=== PATIENT | female | born 1985 | race Caucasian/White ===

== ENCOUNTER → 2018-08-10 | Outpatient (CLI) | payer BC ==
[~2018-08-10] MED LIST: ACET-3017 PO; AMLO-127 PO; IBUP800T37 PO; LOSA100T75 PO; MISO200T59 PO; NORE1PAT3
--- NOTE | 2018-08-10 15:28 | EKG ---
FACILITY: [facility] PATIENT NAME: SASKIA MOTT : [id number] MR: [id number] V: [id number] EXAM DATE: ORDERING PHYSICIAN: PHYLLIS BLANCO TECHNOLOGIST: MITCHELL Test Reason : CHECK UP Blood Pressure : / mmHG Vent. Rate : 071 BPM Atrial Rate : 071 BPM P-R Int : 166 ms QRS Dur : 090 ms QT Int : 384 ms P-R-T Axes : 061 025 046 degrees QTc Int : 417 ms Normal sinus rhythm with sinus arrhythmia Normal ECG No previous ECGs available Confirmed by PHYLLIS BLANCO ([id number]) on 08/18/2018 1:29:46 PM Referred By: BELLA Confirmed By:PHYLLIS BLANCO
== END ==
LOC: RESP 14:55
PROVIDERS: ATTEND Emergency Medicine
DX: I10 Essential (primary) hypertension (principal)
CPT/HCPCS: 93005

== ENCOUNTER → 2018-08-12 | Outpatient (CLI) | payer BC ==
[~2018-08-12] MED LIST changes: -ACET-3017 PO; -AMLO-127 PO; -IBUP800T37 PO; -MISO200T59 PO
--- NOTE | 2018-08-12 09:56 | RADIOLOGY IMAGING REPORT ---
[place] [facility] [place] NAME: Eunice Bentley : 1985 MR: [id number] V: [id number] EXAM DATE: ORDERING PHYSICIAN: PHYLLIS BLANCO TECHNOLOGIST: Location: [facility] Patient: Eunice Bentley : 1985 Visit/Account:[id number] Date of Sevice: 08/12/2018 Exam type: CHEST PA LAT History: New onset hypertension Comparison: None. Findings: The lungs are free of acute effusions, infiltrates or edema. Cardiac silhouette is normal in size. The trachea is in midline. The visualized bones are unremarkable for age. IMPRESSION: 1. No acute cardiopulmonary process is seen Report Dictated By: Nickie Adhikari MD at 08/12/2018 9:50 AM Report E-Signed By: Nickie Adhikari MD at 08/12/2018 9:51 AM WSN:[id number]
== END ==
LOC: LAB 09:06
PROVIDERS: ATTEND Emergency Medicine
DX: I10 Essential (primary) hypertension (principal)
CPT/HCPCS: 71046; 81001